=== PATIENT | female | born 1935 | race Caucasian/White ===

== ENCOUNTER 2018-11-23 08:26 | Day surgery (SDC) | payer MEDICARE, BC ==
[~2018-11-23 08:26] MED LIST: CEFAZOLIN 2 Gram 2 GM/50 ML BAG IVPB ONE
[2018-11-23] MEDS ORDERED: MIDAZOLAM HCL 2MG/2ML VIAL IV ONE (08:27)
[2018-11-23] MEDS ORDERED: MORPHINE SULFATE PF 10MG/10ML VIAL IV ONE (08:27)
[2018-11-23] MEDS ORDERED: KETAMINE HCL 100MG/1ML VIAL INJ ONE (08:27)
[2018-11-23] MEDS ORDERED: PROPOFOL 10 MG/ML VIAL IV ONE (08:27)
[2018-11-23] MEDS ORDERED: DEXAMETHASONE 4 MG/ML 1ML VIAL IVP ONE (08:27)
[2018-11-23] MEDS ORDERED: BUPIVACAINE 0.5% (5MG/ML) PF 30ML VIAL IVP ONE (08:27)
[2018-11-23] MEDS ORDERED: BUPIVACAINE LIPOSOME/PF 133MG/10ML VIAL IV ONE (08:27)
[2018-11-23] MEDS ORDERED: METHYLPREDNISOLONE 40MG/VIAL IM ONE (11:44)
[2018-11-23] MEDS ORDERED: BUPIVACAINE 0.5% W/EPI MPF 30 ML VIAL SQ ONE (11:44)
[2018-11-23] MEDS ORDERED: RINGERS SOLUTION,LACTATED 250 ML IV ONE (12:40)
--- NOTE | 2018-11-24 08:50 | Operative Note ---
DATE OF SURGERY: 11/23/2018 PREOPERATIVE DIAGNOSIS: Severe impingement, right shoulder. Question tear of the rotator cuff. POSTOPERATIVE DIAGNOSES: 1. Small chronic tear of the rotator cuff. 2. Profound external impingement, right shoulder. 3. 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 4. 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 OPERATION: 1. Repair of a chronically torn rotator cuff tear on the right. 2. Right shoulder arthroscopy with intraarticular debridement. 3. Right shoulder open acromioplasty, CA ligament resection with subacromial bursectomy. 4. Right shoulder distal clavicle resection. Staff Surgeon: Srinivas Beebe MD Anesthesia: Shoulder block with sedation. Preparation: Chloraprep. Individual Considerations: None. PROCEDURE: The patient was taken to the operating room after getting a shoulder block. She was then given IV sedation and her right arm and shoulder were prepped and draped in the usual fashion. The patient had examination under anesthesia. It showed full motion and no instability. The patient had posterior portal identified for arthroscopy. Skin was infiltrated with 0.5% Marcaine with epinephrine prior. An 18-gauge spinal needle was easily placed in the joint, and the joint was inflated with normal saline with a 60-mL syringe. A stab wound was made, and a blunt-tipped trocar for the scope was easily placed in the joint. The joint was inflated with normal saline. An anterior accessory portal was then made just inferior to the intact long head of the biceps tendon in a retrograde fashion with a Wissinger jacobo, and the joint was irrigated out. She had an obvious small tear of the rotator cuff at the supraspinatus insertion. The glenohumeral joint showed grade 3 changes at the humeral head. Fraying of the labrum superiorly and intact. The long head was intact. Subscap tendon. No loose bodies of the inferior pouch. The head was debrided and smoothed with a shaver and the labral tears were debrided. The joint was irrigated out, portals were closed with rodo. The patient had an anterior approach to the subacromial space and distal clavicle. Skin was again infiltrated with 0.5% Marcaine with epinephrine prior. Sharp dissection carried down through skin and subcutaneous tissues. Small veins were coagulated with a Bovie. An anterior deltoid interval was developed. Care was taken not to split the deltoid more than about 4 cm distal to the anterior tip of the acromion to prevent injury to the axillary nerve. Once in the subacromial space, there was a large salas of fluid consistent with a tear. She had a huge spur at the anterior acromion that was digging right into the cuff and spurs at the AC joint. The deltoid was then taken subperiosteally off the anterior aspect of the acromion, over the top of the intact CA ligament, and off the anterior aspect of the highly degenerated distal clavicle. CA ligament was resected with a Bovie. Distal clavicle was resected with an oscillating saw. A complete bursectomy was performed. The undersurface of the acromion was smoothed off with a rasp. I now had a good look at the rotator cuff after doing the bursectomy, which was thickened. She had a small tear about 0.5 cm as I saw on her arthroscopy just lateral to the long head. I debrided back to good bleeding tendon and was able to easily mobilize it. Made a small trough with a laurence and then placed a retention suture of #1 Ethibond. Canelo this into the trough through holes distally and tying a knot distally, essentially restored anatomic function of the supraspinatus tear. After irrigation, I placed it through a full range of motion to ensure no further impingement. The deltoid was reattached to remaining acromion with multiple interrupted #2 Vicryl going directly through the bony acromion. The periosteal cuff of the distal clavicle was closed with running #2 Vicryl. Anterior deltoid interval was closed with running #1 Vicryl. Subcu was closed with 2-0 plus Vicryl and skin was closed with running 3-0 Stratafix. The 18-gauge spinal needle was placed in the subacromial space and it was injected with 15 mL of 0.5% Marcaine with epinephrine along with 10 mg of morphine. Sterile bulky compressive dressing and sling were applied. The patient tolerated the procedure well. Needle and sponge counts were correct. Estimated blood loss was minimal. She was taken back to recovery in good condition. There were no complications. JIN
== END 2018-11-23 13:51 | disposition home or self-care (01) ==
LOC: SUR 08:26
PROVIDERS: ATTEND Orthopaedic Surgery
DX: M75.101 Unspecified rotator cuff tear or rupture of right shoulder, not specified as traumatic (principal); M94.211 Chondromalacia, right shoulder; M19.011 Primary osteoarthritis, right shoulder; I10 Essential (primary) hypertension; M79.7 Fibromyalgia
CPT/HCPCS: C9290; J1030; J3490; J7120